=== PATIENT | male | born 1995 | race African-American/Black ===

== ENCOUNTER → 2018-04-18 | Emergency (ER) | payer SELFPAY ==
[~2018-04-18] VITALS: Ht 170.2 cm; Wt 68.0 kg
[2018-04-18 21:30] VITALS: BP 148/84
[2018-04-18 21:40] VITALS: BP 129/72
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
== END ==
LOC: EDBD 21:37 → EMR 22:00
DX: S09.90XA Unspecified injury of head, initial encounter (principal); S00.81XA Abrasion of other part of head, initial encounter; R22.0 Localized swelling, mass and lump, head; X58.XXXA Exposure to other specified factors, initial encounter; Y92.9 Unspecified place or not applicable
CPT/HCPCS: 99283